=== PATIENT | male | born 1960 | race Two or more races ===

== ENCOUNTER 2018-04-19 01:55 | Emergency (ER) | payer OTHER ==
[~2018-04-19] VITALS: Ht 165.1 cm; Wt 90.7 kg
[2018-04-19 07:41] VITALS: BP 139/92
[2018-04-19] MEDS: traMADol HCL 50 MG TAB PO ONE (07:49)
== END 2018-04-19 08:00 | disposition home or self-care (01) ==
LOC: ER 01:55
DX: S16.1XXA Strain of muscle, fascia and tendon at neck level, initial encounter (principal); S39.012A Strain of muscle, fascia and tendon of lower back, initial encounter; M48.061 Spinal stenosis, lumbar region without neurogenic claudication; E11.9 Type 2 diabetes mellitus without complications; I10 Essential (primary) hypertension; V49.49XA Driver injured in collision with other motor vehicles in traffic accident, initial encounter; Y93.89 Activity, other specified; Y99.8 Other external cause status; Y92.488 Other paved roadways as the place of occurrence of the external cause
CPT/HCPCS: 70450; 72125; 72131

== ENCOUNTER 2019-02-01 01:32 | Inpatient (IN) | payer SELFPAY ==
[~2019-02-01] VITALS: Ht 165.1 cm; Wt 96.4 kg
[2019-02-01] MEDS ORDERED: SODIUM CHLORIDE 0.9% 1,000 ML IVB ONE (01:37)
[2019-02-01] MEDS ORDERED: InsuLIN REG 1unit/0.01ml Soln (100units/ml) IV ONE (01:45)
[2019-02-01] MEDS ORDERED: ACETAMINOPHEN 325 MG TAB PO ONE (01:45)
[2019-02-01 02:06] LABS: Basophils # (auto) 0 uL; Basophils % (auto) 0.7 % (0.0-2.0); Eosinophils # (auto) 0.2 uL; Hemoglobin 16.3 g/dL (13.5-17.5); Lymphocytes # (auto) 1.4 uL; Lymphocytes % (auto) 19.3 % (10.0-50.0); Mean Corpuscular Hemoglobin 30.1 pg (28.0-32.0); Mean Corpuscular Hgb Conc. 33.2 g/dL (32.0-36.0); Mean Corpuscular Volume 90.7 fL (80.0-100.0); Monocytes # (auto) 0.6 uL; Monocytes % (auto) 8.1 % (0.0-12.0); Neutrophils # (auto) 4.8 uL; Neutrophils % (auto) 68.9 % (37.0-80.0); Nucleated Red Blood Cells % 0.1 %; Platelet Count (auto) 172 10^3/uL (140-450); Red Cell Distribution Width 13.8 % (11.8-14.3)
[2019-02-01] MEDS ORDERED: ACETAMINOPHEN 650 MG RECT SUPP PR ONE (02:15)
[2019-02-01 02:21] LABS: Alcohol, Urine < 3.0 mg/dL (0-5); Amphetamine Screen, Urine POSITIVE (NEGATIVE); Barbiturate Scree,Urine NEGATIVE (NEGATIVE); Benzodiazephine Screen, Urine NEGATIVE (NEGATIVE); Cannabinoid Screen, Urine NEGATIVE (NEGATIVE); Cocaine Screen, Urine NEGATIVE (NEGATIVE); Opiate Scree,Urine NEGATIVE (NEGATIVE); Phencyclidine Screen, Urine POSITIVE (NEGATIVE)
[2019-02-01 02:22] LABS: Alanine Aminotransferase 56 U/L (16-61); Albumin 3.6 g/dL (3.4-5.0); Anion Gap 8 (5-15); Aspartate Aminotransferase 47 U/L (15-37); BUN/Creatinine Ratio 14.9; Blood Alcohol < 3.0 mg/dL (0-5); Blood Urea Nitrogen 14 mg/dL (7-18); Calcium 9.1 mg/dL (8.5-10.1); Carbon Dioxide 25 mmol/L (21-32); Chloride 102 mmol/L (98-107); GFR African American 106 mL/min; GFR Non-African American 87 mL/min; Potassium 4.2 mmol/L (3.5-5.1); Sodium 135 mmol/L (136-145)
[2019-02-01 02:25] LABS: Lactic Acid w/Reflex 2.4 mmol/L (0.4-2.0)
[2019-02-01 02:27] LABS: Alkaline Phosphatase 85 U/L (45-117); Bilirubin, Total 0.6 mg/dL (0.2-1.0); Total Protein 8.3 g/dL (6.4-8.2)
[2019-02-01 02:40] LABS: Urine Bacteria NONE SEEN /hpf (None Seen); Urine Blood Negative /uL (Negative); Urine Specific Gravity 1.022 (1.001-1.035); Urine WBC 1 /hpf (0 - 3)
[2019-02-01 02:43] LABS: Glucose 441 mg/dL (74-106)
[2019-02-01] MEDS ORDERED: InsuLIN REG 1unit/0.01ml Soln (100units/ml) SC ONE (03:45)
[2019-02-01] MEDS ORDERED: SODIUM CHLORIDE 0.9% 1,000 ML IV ONE ×2 (03:45→04:45)
[2019-02-01] MEDS ORDERED: InsuLIN REG 1unit/0.01ml Soln (100units/ml) ONE (04:34)
[2019-02-01] MEDS ORDERED: VANCOMYCIN PER PHARMACY 0 MG IV SCH (05:15)
[2019-02-01] MEDS ORDERED: PIPERACILLIN-TAZOB 3.375GM 100 ML IV ONE (05:15)
[2019-02-01] MEDS ORDERED: DEXTROSE (50%) 50ML SYRG IV PRN (07:30)
[2019-02-01] MEDS ORDERED: DOCUSATE SOD 100 MG CAP PO PRN (07:30)
[2019-02-01] MEDS ORDERED: LORazepam 0.5 MG TAB PO PRN (07:30)
[2019-02-01] MEDS ORDERED: ONDANSETRON HCL 4 MG/2 ML VIAL IV PRN (07:30)
[2019-02-01] MEDS ORDERED: MORPHINE SULFATE 4 MG/ML SYR/VIAL IV PRN (07:30)
[2019-02-01] MEDS ORDERED: ACETAMINOPHEN 325 MG TAB PO PRN (07:30)
[2019-02-01] MEDS: SODIUM CHLORIDE 0.9% 1,000 ML IV SCH ×2 (07:54→17:27)
[2019-02-01] MEDS: VANCOMYCIN 1GM/250ML 250 ML IV SCH ×2 (07:55→20:27)
[2019-02-01 07:58] LABS: BUN/Creatinine Ratio 17.9; Calcium 8.4 mg/dL (8.5-10.1); Potassium 3.8 mmol/L (3.5-5.1)
[2019-02-01] MEDS: ACCU-CHEK COMFORT CURVE STRIP VI SCH ×5 (07:58→23:53)
[2019-02-01] MEDS: InsuLIN REG 1unit/0.01ml Soln (100units/ml) SC SCH ×5 (08:02→23:54)
--- NOTE | 2019-02-01 10:15 | NUR ---
Telemetry admit from [facility] admitted to Telemetry unit after SBAR received. Patient oriented to primary RN, unit, room, bed, and unit policies regarding patient care and visiting hours. Patient now on continuous telemetry monitoring, tele box # [id number]. Patient weighed by bedscale and encouraged to call if they need something. All questions and concerns addressed, patient verbalized understanding. Spouse and daughter in attendance.
--- NOTE | 2019-02-01 11:00 | NUR ---
Family members at bedside.
[2019-02-01 11:07] VITALS: BP 151/95
[2019-02-01 11:09] VITALS: BP 151/95
[2019-02-01] MEDS ORDERED: INSLISPI SC (12:57)
[2019-02-01] MEDS ORDERED: INSLANTI SC (12:57)
[2019-02-01] MEDS ORDERED: LISI-275 PO (12:57)
[2019-02-01 13:00] VITALS: BP 151/96
[2019-02-01] MEDS ORDERED: INFLUENZA QUAD 2019-2020 0.5ml SYRG IM ONE (13:00)
[2019-02-01 17:00] VITALS: BP 146/84
--- NOTE | 2019-02-01 19:20 | NUR ---
Opening Shift Note Received report from mike Miramontes RN. Assumed care of patient, awake and alert. No S/S of distress/SOB or pain. Instructed on POC and to call for assist PRN, will continue to monitor for changes Q1hr and PRN. Bed placed in lowest position, and call light within reach.
[2019-02-01 20:00] VITALS: BP 137/74
[2019-02-01 21:56] VITALS: BP 137/79
[2019-02-02] MEDS: ACCU-CHEK COMFORT CURVE STRIP VI SCH ×5 (04:11→20:00)
[2019-02-02] MEDS: InsuLIN REG 1unit/0.01ml Soln (100units/ml) SC SCH ×5 (04:16→20:45)
[2019-02-02] MEDS: HYDROcodone-ACET 5/325MG TAB PO PRN ×2 (04:18→23:43)
--- NOTE | 2019-02-02 04:18 | NUR ---
Patient is requesting [facility] for headache. Will monitor
[2019-02-02] MEDS: SODIUM CHLORIDE 0.9% 1,000 ML IV SCH ×3 (04:37→23:22)
[2019-02-02 05:05] VITALS: BP 139/97
[2019-02-02 06:51] LABS: Potassium 3.9 mmol/L (3.5-5.1)
--- NOTE | 2019-02-02 07:00 | NUR ---
Patient received awake, alert and oriented x4. On room air. Able to make needs known. patient is cooperative and compliant with assessment. will continue to monitor for changes
[2019-02-02 07:18] LABS: Albumin 3.2 g/dL (3.4-5.0); BUN/Creatinine Ratio 17.1; Bilirubin, Total 0.7 mg/dL (0.2-1.0); Calcium 8.4 mg/dL (8.5-10.1); Total Protein 7.4 g/dL (6.4-8.2)
[2019-02-02 08:00] VITALS: BP 126/84
[2019-02-02 09:00] VITALS: BP 126/84
[2019-02-02] MEDS: VANCOMYCIN 1GM/250ML 250 ML IV SCH (09:39)
[2019-02-02 13:00] VITALS: BP 138/95
--- NOTE | 2019-02-02 15:00 | NUR ---
patient seen by Dr. Padgett. Urine culture to rule out infection and veinous dopplar ordered. will continue to monitor for changes
[2019-02-02] MEDS ORDERED: cefTRIAXone 1GM/50ML D5W 50 ML IV ONE (15:15)
[2019-02-02 17:00] VITALS: BP 139/89
--- NOTE | 2019-02-02 19:15 | NUR ---
Opening Shift Note Received report from mike Peterson RN. Assumed care of patient, awake and alert but drowsy. No S/S of distress/SOB or pain. Instructed on POC and to call for assist PRN, will continue to monitor for changes Q1hr and PRN. Bed placed in lowest position, and call light within reach.
[2019-02-02 20:00] VITALS: BP 161/87
[2019-02-02] MEDS: VANCOMYCIN 1,250 MG in D5W 5% 250 ML IV SCH (22:06)
[2019-02-03] MEDS: InsuLIN REG 1unit/0.01ml Soln (100units/ml) SC SCH ×4 (00:55→13:10)
[2019-02-03] MEDS: ACCU-CHEK COMFORT CURVE STRIP VI SCH ×4 (04:00→12:58)
[2019-02-03 05:31] VITALS: BP 164/86
[2019-02-03 05:32] VITALS: BP 135/93
[2019-02-03] MEDS: VANCOMYCIN 1,250 MG in D5W 5% 250 ML IV SCH (06:02)
--- NOTE | 2019-02-03 07:30 | NUR ---
Received report from Angélica signal apprentice RN. Assumed care of patient, awake and alert but expressed tiredness. No S/S of distress/and no SOB or pain reported. Instructed on POC and to call for assist PRN, will continue to monitor for changes Q1hr and PRN. Bed placed in lowest position, and call light within reach.
[2019-02-03 07:31] LABS: Basophils # (auto) 0.1 uL; Basophils % (auto) 0.9 % (0.0-2.0); Eosinophils # (auto) 0.3 uL; Eosinophils % (auto) 4.2 % (0.0-7.0); Hematocrit 46.7 % (41.0-53.0); Hemoglobin 16.1 g/dL (13.5-17.5); Lymphocytes # (auto) 2.1 uL; Lymphocytes % (auto) 27.3 % (10.0-50.0); Mean Corpuscular Hemoglobin 30.6 pg (28.0-32.0); Mean Corpuscular Hgb Conc. 34.4 g/dL (32.0-36.0); Mean Corpuscular Volume 89.1 fL (80.0-100.0); Monocytes # (auto) 0.8 uL; Monocytes % (auto) 10.4 % (0.0-12.0); Neutrophils # (auto) 4.3 uL; Neutrophils % (auto) 57.2 % (37.0-80.0); Nucleated Red Blood Cells % 0.1 %; Platelet Count (auto) 139 10^3/uL (140-450); Red Blood Cells 5.24 10^6/uL (4.5-5.90); Red Cell Distribution Width 13.7 % (11.8-14.3); White Blood Cell 7.5 10^3/uL (4.4-10.8)
[2019-02-03 07:58] LABS: BUN/Creatinine Ratio 17.9; Calcium 8.6 mg/dL (8.5-10.1); Potassium 4.1 mmol/L (3.5-5.1)
[2019-02-03 08:00] VITALS: BP 131/94
[2019-02-03 09:00] VITALS: BP 131/94
[2019-02-03] MEDS ORDERED: cefTRIAXone 1GM/50ML D5W 50 ML IV SCH (09:00)
[2019-02-03] MEDS: SODIUM CHLORIDE 0.9% 1,000 ML IV SCH (09:22)
[2019-02-03 13:00] VITALS: BP 139/97
[2019-02-03] MEDS ORDERED: INFLUENZA QUAD 2019-2020 0.5ml SYRG IM ONE (15:30)
--- NOTE | 2019-02-03 16:31 | NUR ---
PATIENT DISCHARGED HOME PER DOCTOR'S ORDER. PATIENT INFORMED OF DISCHARGE INSTRUCTIONS. HOWEVER PATIENT LEFT THE UNIT WITHOUT SIGNING DISCHARGE PAPERS OR TAKING PRESCRIPTION. PATIENT RECEIVED FLU SHOT UPON DISCHARGE. IV REMOVED AND TELE BOX REMOVED AND SENT TO ICU. PATIENT WAS NOT IN DISTRESS AT TIME OF DISCHARGE. CALLED PATIENT'S CONTACT NUMBER TO REMIND OF PRESCRIPTION. HOWEVER, UNABLE TO LEAVE MESSAGE DUE TO FULL MAILBOX.
== END 2019-02-03 16:20 | disposition home or self-care (01) | DRG 871 ==
LOC: EDBD 01:32 → EDUNIT# 01:32 → ER 01:41 → TELE 01:42 → TELE-WESTW 10:12
PROVIDERS: ADMIT Hospitalist; ATTEND Internal Medicine
DX: A41.9 Sepsis, unspecified organism (principal); G92 Toxic encephalopathy; N39.0 Urinary tract infection, site not specified; E11.65 Type 2 diabetes mellitus with hyperglycemia; F19.10 Other psychoactive substance abuse, uncomplicated; I10 Essential (primary) hypertension; Z79.4 Long term (current) use of insulin; Z91.14 Patient's other noncompliance with medication regimen
CPT/HCPCS: 36415; 36600; 51702; 70450; 71045; 80048; 80053; 80202; 80307; 80320; 81001; 82010; 82140; 82805; 82962; 83036; 83605; 84443; 84484; 85025; 87040; 87086; 93005; 93970; 96361; 96365; 96375; G0378; J0696; J1815; J2543; J7060

== ENCOUNTER 2020-02-13 22:26 | Emergency (ER) | payer MEDICAID, OTHER ==
[~2020-02-13] VITALS: Ht 165.1 cm; Wt 90.7 kg
[~2020-02-13 22:26] MED LIST: INSLANTI SC; INSLISPI SC; LISI-275 PO
[2020-02-14 03:59] LABS: Basophils # (auto) 0 10 ^3/uL (0-0.2); Basophils % (auto) 0.4 % (0.0-2.0); Eosinophils # (auto) 0.2 10 ^3/uL (0-0.8); Eosinophils % (auto) 2.6 % (0.0-7.0); Hematocrit 46.2 % (41.0-53.0); Hemoglobin 15.8 g/dL (13.5-17.5); Lymphocytes # (auto) 1.8 10 ^3/uL (0.4-5.4); Mean Corpuscular Hemoglobin 30.3 pg (28.0-32.0); Mean Corpuscular Hgb Conc. 34.1 g/dL (32.0-36.0); Mean Corpuscular Volume 88.9 fL (80.0-100.0); Monocytes # (auto) 0.8 10 ^3/uL (0-1.3); Monocytes % (auto) 11.7 % (0.0-12.0); Neutrophils % (auto) 59.3 % (37.0-80.0); Nucleated Red Blood Cells % 0.1 %; Platelet Count (auto) 149 10^3/uL (140-450); Red Cell Distribution Width 13.2 % (11.8-14.3); White Blood Cell 6.8 10^3/uL (4.4-10.8)
[2020-02-14 04:21] LABS: INR 1.03 (0.9-1.15); Partial Thromboplastin Time 27.6 sec (23.0-31.2)
[2020-02-14 04:22] LABS: Chloride 101 mmol/L (98-107); Sodium 133 mmol/L (136-145)
[2020-02-14 04:27] LABS: Anion Gap 6 (5-15); BUN/Creatinine Ratio 14.8; Blood Urea Nitrogen 9 mg/dL (7-18); Calcium 8.6 mg/dL (8.5-10.1); Carbon Dioxide 26 mmol/L (21-32); GFR African American 173 mL/min; GFR Non-African American 143 mL/min; Glucose 267 mg/dL (74-106); Magnesium 1.8 mg/dL (1.6-2.6)
[2020-02-14 04:41] LABS: Alanine Aminotransferase 49 U/L (16-61); Alkaline Phosphatase 83 U/L (45-117); Aspartate Aminotransferase 40 U/L (15-37); Bilirubin, Total 0.4 mg/dL (0.2-1.0); Total Protein 8.4 g/dL (6.4-8.2)
[2020-02-14] MEDS ORDERED: levoFLOXacin 250 MG TAB PO ONE (05:45)
[2020-02-14 05:50] VITALS: BP 119/78
== END 2020-02-14 07:07 | disposition home or self-care (01) ==
LOC: ER 22:29
DX: J18.9 Pneumonia, unspecified organism (principal); E11.9 Type 2 diabetes mellitus without complications; I10 Essential (primary) hypertension; Z20.822 Contact with and (suspected) exposure to COVID-19
CPT/HCPCS: 36415; 71045; 80053; 82962; 83735; 83880; 84484; 85025; 85379; 85610; 85730; 87040; 87426; 93005; 99285; C9803; U0003

== ENCOUNTER 2024-11-25 00:43 | Emergency (ER) | payer MEDICARE, OTHER ==
[~2024-11-25] VITALS: Ht 165.1 cm; Wt 89.4 kg
[2024-11-25 00:53] VITALS: BP 145/76; PULSE 80; RESP 16; TEMP 97.4; O2SAT 99
[2024-11-25] MEDS ORDERED: ACE3T PO (01:04)
--- NOTE | 2024-11-25 01:05 | ED.PDOC ---
Musculoskeletal HPI Comments 64-year-old male presents to ER with complaints of right forearm pain x2 weeks. Patient reports he started experiencing right forearm pain two weeks ago, denying any trauma/known injury. He rates his current pain a 8/10 to right mid forearm with radiation towards right hand. States he has been taking ibuprofen for his pain without relief and notes he does have intermittent numbness/tingling to all fingers right hand. Denies skin changes or any further symptoms/complaints Chief Complaint: Upper Extremity Time Seen by MD: 00:50 Primary Care Provider: UNKNOWN Reviewed Notes: Nurses Notes, Medications, Allergies Allergies: Coded Allergies: NO KNOWN ALLERGIES (Unverified , 02/01/19) Home Meds Active Scripts Acetaminophen W/ Codeine (Tylenol W/Cod #3) 1 Tab Tb, 1 TAB PO Q6HPRN, #10 TAB 0 Refills Prov:CATHLEEN DANIELS 11/25/24 Reported Medications Lisinopril (Lisinopril) 5 Mg Tab, 5 MG PO DAILY for 30 Days, MG 02/01/19 Insulin Lispro (Human) (Humalog) 100 Unit/Ml Inj, 5 UNIT SC, INJ 02/01/19 Insulin Glargine (Lantus) 100 Unit/Ml Inj, 30 UNIT SC, INJ 02/01/19 Information Source: Patient Mode of Arrival: Ambulatory Past Medical History PAST MEDICAL HISTORY: CVA, DM, HTN Surgical History: Hernia Repair Family History Family History: Unknown Social History Smoker: Non-Smoker Alcohol: Denies ETOH Use Drugs: Denies Drug Use Lives In: Home Constitutional: denies: chills, diaphoresis, fatigue, fever, malaise, sweats, weakness, others EENTM: denies: blurred vision, double vision, ear bleeding, ear discharge, ear drainage, ear pain, ear ringing, eye pain, eye redness, hearing loss, mouth pain, mouth swelling, nasal discharge, nose bleeding, nose congestion, nose pain, photophobia, tearing, throat pain, throat swelling, voice changes, others Respiratory: denies: cough, hemoptysis, orthopnea, SOB at rest, shortness of breath, SOB with excertion, stridor, wheezing, others Cardiovascular: denies: chest pain, dizzy spells, diaphoresis, Dyspnea on exertion, edema, irregular heart beat, left arm pain, lightheadedness, palpitations, PND, syncope, others Gastrointestinal: denies: abdomen distended, abdominal pain, blood streaked bowels, constipated, diarrhea, dysphagia, difficulty swallowing, hematemesis, melena, nausea, poor appetite, poor fluid intake, rectal bleeding, rectal pain, vomiting, others Genitourinary: denies: burning, dysuria, flank pain, frequency, hematuria, incontinence, penile discharge, penile sore, pain, testicle pain, testicle swelling, urgency, others Neurological: reports: others (As stated in HPI) Musculoskeletal: reports: others (As stated in HPI) Integumetry: denies: bruises, change in color, change in hair/nails, dryness, laceration, lesions, lumps, rash, wounds, others Allergic/Immunocompromised: denies: Difficulty Healing, Frequent Infections, Hives, Itching, others Hematologic/Lymphatic: denies: anemia, blood clots, easy bleeding, easy bruising, swollen glands, others Endocrine: denies: excessive hunger, excessive sweating, excessive thirst, excessive urination, flushing, intolerance to cold, intolerance to heat, unexplained weight gain, unexplained weight loss, others Psychiatric: denies: anxiety, bipolar disorder, depression, hopeless, panic disorder, schizophrenia, sleepless, suicidal, others Physical Exam General Appearance: No Apparent Distress, Obese HEENT: PERRL/EOMI Neck: Full Range of Motion, Non-Tender, Normal Respiratory: Chest Non-Tender, Lungs Clear, No Accessory Muscle Use, No Respiratory Distress, Normal Breath Sounds Cardiovascular: No Murmur, No Gallop, Regular Rate/Rhythm Breast Exam: Deferred Gastrointestinal: NOT DONE Genitalia: Deferred Pelvic: Deferred Rectal: Deferred Extremities: Normal capillary refill, Normal range of motion Musculoskeletal : Extremity Location: Forearm (TTP to right mid forearm too. No skin changes noted. No other TTP to right upper extremity noted ) Neurologic: Alert, casing cooker II-XII nml as Tested, No Motor Deficits, Normal Affect, Normal Mood, No Sensory Deficits Cerebellar Function: Normal Reflexes: Normal Skin: Dry, Normal Color, Warm Peripheral Pulses: 2+ Radial (R), 2+ Radial (L), 2+ Brachial (R), 2+ Brachial (L) Lymphatic: No Adenopathy Was a procedure done? Was a procedure done?: No Sedation Sedation?: No Differential Diagnosis EXT Differential Diagnosis: Fracture, Dislocation, Neurovascular injury, Other (mass) X-Ray, Labs, Meds, VS Vital Signs Date Time Temp Pulse Resp B/P (MAP) Pulse Ox O2 Delivery O2 Flow Rate FiO2 11/25/24 00:53 Room Air* 0 21 11/25/24 00:53 97.4 80 16 145/76 (99) 99 97.4 11/25/24 00:46 97.4 80 16 145/76 99 97.4 PATIENT: JESE CROSSCCT: [id number]: [id number] : 1960 LOC: ER ROOM / BED: / AGE / SEX: 64 / M ADM STATUS: REG ER SERVICE ORDERING PHYSICIAN: CATHLEEN DANIELS PROCEDURE(s): RFOR - R FOREARM XRAY REASON: right forearm pain ORDER NUMBER(s): [id number], ACCESSION NUMBER(s): [id number] CLINICAL INDICATION: right forearm pain TECHNIQUE: XYXY R FOREARM XRAY Comparison: None FINDINGS/IMPRESSION: : There is no evidence of acute fracture or dislocation. Soft tissues are unremarkable. ATED BY: TERRELL RIVERA MD DICTATED DATE/TIME: 11/25/24124 SIGNED BY: TERRELL RIVERA MD SIGNED DATE/TIME: 11/25/24124 CC: Right forearm x-ray reviewed Patient neurovascularly intact Advised to alternate ice on/off as needed for pain Advised to follow up with PCP in 1-2 days Patient verbalized understanding and agreeable with current plan of care Advised to return to ER immediately if symptoms worsen Images Reviewed?: Images reviewed and evaluated by me Time of 1ST Reevaluation: 01:02 Reevaluation 1ST: N/A Patient Education/Counseling: Diagnosis, Treatment, Prognosis, Need For Follow Up Family Education/Counseling: No Family Present Departure 1 Departure Time of Disposition: 01:30 Impression: Primary Impression: Muscle strain of right forearm Qualified Codes: S56.911A - Strain of unspecified muscles, fascia and tendons at forearm level, right arm, initial encounter Disposition: HOME / SELF CARE / HOMELESS Condition: Stable e-Prescriptions Acetaminophen W/ Codeine (Tylenol W/Cod #3) 1 Tab Tb 1 TAB PO Q6HPRN, #10 TAB 0 Refills Prov: CATHLEEN DANIELS 11/25/24 Discharged With: Friend Critical Care Note Critical Care Time?: No Stability Stability form required: No Heart Score Heart Score: Heart Score Response (Comments) Value History N/A 0 EKG N/A 0 Age N/A 0 Risk Factors N/A 0 Troponin N/A 0 Total 0 CATHLEEN DANIELS Nov 25, 2024 01:05
--- NOTE | 2024-11-25 01:28 | DVH ---
CLINICAL INDICATION: right forearm pain TECHNIQUE: XYXY R FOREARM XRAY Comparison: None FINDINGS/IMPRESSION: : There is no evidence of acute fracture or dislocation. Soft tissues are unremarkable.
== END 2024-11-25 01:33 | disposition home or self-care (01) ==
LOC: ER 00:43
DX: S56.911A Strain of unspecified muscles, fascia and tendons at forearm level, right arm, initial encounter (principal); I10 Essential (primary) hypertension; E11.9 Type 2 diabetes mellitus without complications; Z86.73 Personal history of transient ischemic attack (TIA), and cerebral infarction without residual deficits; Z79.899 Other long term (current) drug therapy; Z98.890 Other specified postprocedural states; X58.XXXA Exposure to other specified factors, initial encounter; Y93.89 Activity, other specified; Y92.89 Other specified places as the place of occurrence of the external cause; Y99.8 Other external cause status
CPT/HCPCS: 73090